=== PATIENT | female | born 1980 | race Caucasian/White ===

== ENCOUNTER → 2020-11-26 | Outpatient (CLI) | payer OTHER | LOC: MAMO 11:00 | DX: N63.10 Unspecified lump in the right breast, unspecified quadrant (principal) | CPT/HCPCS: 76641-LT; 76641-RT; 77066; G0279 ==

== ENCOUNTER 2021-07-02 21:43 | Emergency (ER) | payer OTHER | END 2021-07-03 00:07 | disposition left against medical advice (07) | LOC: ER1 21:43 | DX: Z53.21 Procedure and treatment not carried out due to patient leaving prior to being seen by health care provider (principal) | CPT/HCPCS: 93005 ==